=== PATIENT | female | born 1935 | race Caucasian/White ===

== ENCOUNTER 2017-04-28 11:22 | Inpatient (IN) | payer OTHER ==
[2017-04-28 11:49] LABS: BASOPHILS % (AUTO) 0.3 % (0.0-5.0); EOSINOPHILS % (AUTO) 0.9 % (0.0-8.0); HEMATOCRIT 31.3 % (36-48); LYMPHOCYTES % (AUTO) 13.5 % (21.0-51.0); MEAN CORPUSCULAR HEMOGLOBIN 31.6 pg (27.0-33.0); MEAN CORPUSCULAR VOLUME 90.2 fL (79-99); MONOCYTES % (AUTO) 6.8 % (3.0-13.0); NEUTROPHILS % (AUTO) 78.5 % (40.0-77.0); PLATELET COUNT (AUTO) 235 K/uL (130-400); RED BLOOD CELL COUNT(AUTO) 3.47 MIL/uL (4.00-5.50)
[2017-04-28 12:01] LABS: APPEARANCE,URINE CLOUDY (CLEAR); BILIRUBIN,URINE NEGATIVE (NEGATIVE); COLOR,URINE YELLOW (YELLOW); GLUCOSE, URINE (UA) NEGATIVE (NEGATIVE); KETONES,URINE 15 mg/dL (NEGATIVE); LEUKOCYTE ESTERASE ,URINE MODERATE (NEGATIVE); NITRATE,URINE POSITIVE (NEGATIVE); OCCULT BLOOD,URINE MODERATE (NEGATIVE); PH,URINE 5.5 (5.0-8.0); PROTEIN,URINE 30 (NEGATIVE); UROBILINOGEN,URINE 0.2 mg/dL (0.2-1.0)
[2017-04-28 12:01] LABS: POTASSIUM 3.6 mmol/L (3.5-5.1)
[2017-04-28 12:04] LABS: BACTERIA,URINE Few /HPF (None Seen); RBC,URINE 0-1 /HPF (0-1); SQUAMOUS EPITHELIAL CELL,UR Few /LPF (0-2); WBC,URINE 26-50 /HPF (0-1)
[2017-04-28] MEDS ORDERED: IPRATROPIUM/ALBUTEROL SULFATE 3 ML SOLUTION IH ONE (12:12)
[2017-04-28 12:16] LABS: BILIRUBIN,TOTAL 0.5 mg/dL (0.2-1.0); CREATINE KINASE MB 7.6 ng/mL (0.5-3.6); TOTAL PROTEIN, SERUM 6.8 g/dL (6.0-8.3)
[2017-04-28 12:17] LABS: ALBUMIN 3.1 g/dL (3.5-5.0)
[2017-04-28 12:21] LABS: B-TYPE NATRIURETIC PEPTIDE 72 pg/mL (0-100)
[2017-04-28] MEDS ORDERED: CEFTRIAXONE SODIUM 1 GM ONE (12:41)
[2017-04-28] MEDS ORDERED: ADENOSINE 3 MG/ML 2ML VIAL IV ONE ×3 (13:21→13:26)
[2017-04-28] MEDS: SODIUM CHLORIDE 0.9% 1000ML 1,000 ML IV SCH ×2 (14:23→20:50)
[2017-04-28] MEDS ORDERED: LACTULOSE 20 GM/30 ML UDCUP PO PRN (14:30)
[2017-04-28] MEDS: METRONIDAZOLE 250MG/50ML 50 ML IV SCH ×2 (14:30→22:12)
[2017-04-28] MEDS ORDERED: DOXYCYCLINE 100MG+NS 250ML 250 ML IV SCH (14:30)
[2017-04-28] MEDS ORDERED: MORPHINE SULFATE 2 MG/ML 1ML SYG IV PRN (14:30)
[2017-04-28] MEDS ORDERED: MAG HYDROX/AL HYDROX/SIMETH ES 30 ML SUSP UDCUP PO PRN (14:30)
[2017-04-28] MEDS ORDERED: ONDANSETRON HCL 4 MG/2 ML VIAL IV PRN (14:30)
[2017-04-28] MEDS ORDERED: POTASSIUM CHLORIDE 10% ELIXIR 20 MEQ/15 ML UDCUP PO PRN (14:30)
[2017-04-28] MEDS ORDERED: GUAIFENESIN-DM 200/20 MG 10 ML PO PRN (14:30)
[2017-04-28] MEDS ORDERED: NITROGLYCERIN 0.4 MG SL TAB SL PRN (14:30)
[2017-04-28] MEDS ORDERED: ACETAMINOPHEN 325 MG TAB PO PRN (14:30)
[2017-04-28] MEDS ORDERED: CEFTRIAXONE 1GM/D5W 50ML 50 ML IV SCH (14:30)
[2017-04-28] MEDS ORDERED: ACETAMINOPHEN-CODEINE 300/30MG TAB PO PRN (14:30)
[2017-04-28] MEDS ORDERED: POTASSIUM CHLORIDE 20 MEQ ERTAB PO PRN (14:30)
[2017-04-28] MEDS ORDERED: CEFTRIAXONE SODIUM 1 GM IVP SCH (14:45)
[2017-04-28] MEDS: CEFTRIAXONE SODIUM 1 GM IVP SCH (14:45)
[2017-04-28] MEDS ORDERED: METOPROLOL TARTRATE 1 MG/ML 5ML VIAL IV ONE (14:54)
[2017-04-28] MEDS ORDERED: METRONIDAZOLE 500MG/100ML BAG 100 ML ONE (17:09)
[2017-04-28] MEDS ORDERED: DOXYCYCLINE 100MG+NS 250ML 250 ML IV ONE (17:42)
[2017-04-28] MEDS ORDERED: SODIUM CHLORIDE 0.9% 1000ML 1,000 ML IV ONE (17:42)
[2017-04-28 18:24] LABS: CREATINE KINASE MB 6.7 ng/mL (0.5-3.6); TROPONIN I 0.09 ng/mL (0.00-0.06)
[2017-04-28] MEDS: METOPROLOL TARTRATE 25 MG TAB PO SCH (21:00)
[2017-04-28 21:01] VITALS: BP 170/73
[2017-04-28] MEDS ORDERED: METO50TA9 PO (21:54)
[2017-04-28] MEDS ORDERED: ASPI-1197 PO (21:54)
[2017-04-28] MEDS ORDERED: PARO-37 PO (21:54)
[2017-04-28] MEDS ORDERED: ALEN70TA2 PO (21:55)
[2017-04-28] MEDS ORDERED: NAPR-1023 PO (21:58)
[2017-04-28] MEDS: FAMOTIDINE/PF 20 MG/2 ML VIAL IV SCH (22:15)
[2017-04-29] VITALS (7 sets, daily range): BP systolic 152–184; BP diastolic 64–89
[2017-04-29 00:15] LABS: CREATINE KINASE MB 7.2 ng/mL (0.5-3.6); TROPONIN I 0.11 ng/mL (0.00-0.06)
[2017-04-29] MEDS ORDERED: LABETALOL 20 MG/4 ML DISP.SYRIN IV ONE (01:38)
[2017-04-29 04:27] LABS: HEMATOCRIT 31.8 % (36-48); MEAN CORPUSCULAR HEMOGLOBIN 30.7 pg (27.0-33.0); MEAN CORPUSCULAR HGB CONC 34.4 g/dL (32.0-36.0); MEAN CORPUSCULAR VOLUME 89.2 fL (79-99); PLATELET COUNT (AUTO) 264 K/uL (130-400); RED BLOOD CELL COUNT(AUTO) 3.56 MIL/uL (4.00-5.50); RED CELL DISTRIBUTION WIDTH 14.9 % (11.0-15.5); WHITE BLOOD COUNT (AUTO) 7.6 K/uL (4.8-10.8)
[2017-04-29 05:16] LABS: CREATININE 0.8 mg/dL (0.5-1.5); POTASSIUM 3.6 mmol/L (3.5-5.1)
[2017-04-29] MEDS: METRONIDAZOLE 250MG/50ML 50 ML IV SCH ×3 (06:30→22:37)
[2017-04-29] MEDS: METOPROLOL TARTRATE 25 MG TAB PO SCH ×3 (08:28→19:56)
[2017-04-29] MEDS: FAMOTIDINE/PF 20 MG/2 ML VIAL IV SCH ×2 (08:28→19:55)
[2017-04-29] MEDS: LABETALOL 20 MG/4 ML DISP.SYRIN IV PRN (08:29)
[2017-04-29] MEDS: ENOXAPARIN SODIUM 30 MG/0.3 ML SQ SCH (08:30)
[2017-04-29] MEDS ORDERED: COMPOUND IV MISC 1 EACH IVSOLN MISC PRN (08:45)
[2017-04-29] MEDS ORDERED: PHARMACY COMMUNICATION MISC SCH (10:15)
[2017-04-29] MEDS: IPRATROPIUM/ALBUTEROL SULFATE 3 ML SOLUTION IH PRN ×3 (11:10→23:52)
[2017-04-29] MEDS: HYDRALAZINE HCL 20 MG/ML VIAL IV PRN ×2 (13:10→23:43)
[2017-04-29] MEDS: PAROXETINE HCL 20 MG TABLET PO SCH (13:13)
[2017-04-29] MEDS: CEFTRIAXONE SODIUM 1 GM IVP SCH (14:27)
[2017-04-29] MEDS: ACETAMINOPHEN 325 MG TAB PO PRN (18:54)
[2017-04-29] MEDS: METHYLPREDNISOLONE SOD SUCC 40MG/ML 1ML IVP SCH (19:55)
[2017-04-30] VITALS (7 sets, daily range): BP systolic 134–189; BP diastolic 56–104
[2017-04-30 04:45] LABS: HEMATOCRIT 33.6 % (36-48); MEAN CORPUSCULAR HEMOGLOBIN 30.4 pg (27.0-33.0); MEAN CORPUSCULAR HGB CONC 34.1 g/dL (32.0-36.0); MEAN CORPUSCULAR VOLUME 89.2 fL (79-99); PLATELET COUNT (AUTO) 275 K/uL (130-400); RED BLOOD CELL COUNT(AUTO) 3.77 MIL/uL (4.00-5.50); WHITE BLOOD COUNT (AUTO) 7.4 K/uL (4.8-10.8)
[2017-04-30 04:59] LABS: B-TYPE NATRIURETIC PEPTIDE 910 pg/mL (0-100)
[2017-04-30] MEDS: METRONIDAZOLE 250MG/50ML 50 ML IV SCH ×3 (05:31→21:45)
[2017-04-30 05:32] LABS: CREATININE 0.8 mg/dL (0.5-1.5); POTASSIUM 3.8 mmol/L (3.5-5.1)
[2017-04-30] MEDS: IPRATROPIUM/ALBUTEROL SULFATE 3 ML SOLUTION IH PRN ×2 (05:41→11:06)
[2017-04-30] MEDS: PAROXETINE HCL 20 MG TABLET PO SCH ×2 (09:01→12:37)
[2017-04-30] MEDS: LABETALOL 20 MG/4 ML DISP.SYRIN IV PRN ×2 (09:01→23:54)
[2017-04-30] MEDS: METOPROLOL TARTRATE 25 MG TAB PO SCH ×2 (09:01→20:07)
[2017-04-30] MEDS: METHYLPREDNISOLONE SOD SUCC 40MG/ML 1ML IVP SCH (09:01)
[2017-04-30] MEDS: FAMOTIDINE/PF 20 MG/2 ML VIAL IV SCH ×2 (09:01→20:07)
[2017-04-30] MEDS: ASPIRIN 81MG TAB.CHEW PO SCH (09:01)
[2017-04-30] MEDS: ENOXAPARIN SODIUM 30 MG/0.3 ML SQ SCH (09:08)
[2017-04-30] MEDS ORDERED: IPRATROPIUM 0.5 MG/2.5 ML INH IH PRN (12:30)
[2017-04-30] MEDS: FUROSEMIDE 10 MG/ML 2ML VIAL IV SCH ×2 (12:38→21:39)
[2017-04-30] MEDS ORDERED: LORAZEPAM 2 MG/ML 1 ML VIAL IVP SCH (14:00)
[2017-04-30] MEDS: HYDRALAZINE HCL 20 MG/ML VIAL IV PRN (14:17)
[2017-04-30] MEDS: CEFTRIAXONE SODIUM 1 GM IVP SCH (14:18)
[2017-04-30] MEDS: METHYLPREDNISOLONE SOD SUCC 125MG/2ML VIAL IVP SCH (20:08)
[2017-05-01] VITALS (9 sets, daily range): BP systolic 148–190; BP diastolic 66–104
[2017-05-01] MEDS ORDERED: LORAZEPAM 2 MG/ML 1 ML VIAL ONE (02:09)
[2017-05-01] MEDS ORDERED: CLONIDINE HCL 0.1 MG TABLET ONE (02:09)
[2017-05-01] MEDS: CLONIDINE HCL 0.1 MG TABLET PO SCH ×2 (02:15→20:01)
[2017-05-01] MEDS ORDERED: LORAZEPAM 2 MG/ML 1 ML VIAL IVP ONE (02:15)
[2017-05-01 04:05] LABS: CREATININE 0.9 mg/dL (0.5-1.5); POTASSIUM 3.3 mmol/L (3.5-5.1)
[2017-05-01] MEDS: METRONIDAZOLE 250MG/50ML 50 ML IV SCH (05:29)
[2017-05-01] MEDS: POTASSIUM CHLORIDE 20MEQ/100ML 100 ML IV PRN (06:04)
[2017-05-01] MEDS: LIDOCAINE HCL-MPF 1% 2ML VIAL IVP PRN ×2 (06:04→08:07)
[2017-05-01] MEDS: METHYLPREDNISOLONE SOD SUCC 125MG/2ML VIAL IVP SCH ×2 (08:00→20:35)
[2017-05-01] MEDS: FAMOTIDINE/PF 20 MG/2 ML VIAL IV SCH ×2 (08:00→20:31)
[2017-05-01] MEDS: ENOXAPARIN SODIUM 30 MG/0.3 ML SQ SCH (08:10)
[2017-05-01] MEDS: ASPIRIN 81MG TAB.CHEW PO SCH ×2 (09:00→13:31)
[2017-05-01] MEDS: PAROXETINE HCL 20 MG TABLET PO SCH ×3 (09:00→13:29)
[2017-05-01] MEDS: METOPROLOL TARTRATE 25 MG TAB PO SCH ×3 (09:00→20:31)
[2017-05-01] MEDS: FUROSEMIDE 10 MG/ML 2ML VIAL IV SCH ×2 (10:23→22:05)
[2017-05-01] MEDS: CEFTRIAXONE SODIUM 1 GM IVP SCH (13:55)
[2017-05-01] MEDS ORDERED: HALOPERIDOL LACTATE 5 MG/ML VIAL ONE (21:06)
[2017-05-01] MEDS: HALOPERIDOL LACTATE 5 MG/ML VIAL IV SCH (22:04)
[2017-05-02] VITALS (10 sets, daily range): BP systolic 138–201; BP diastolic 65–100
[2017-05-02] MEDS: LABETALOL 20 MG/4 ML DISP.SYRIN IV PRN ×3 (00:52→16:11)
[2017-05-02 07:08] LABS: POTASSIUM 3.4 mmol/L (3.5-5.1)
[2017-05-02] MEDS: FAMOTIDINE/PF 20 MG/2 ML VIAL IV SCH ×2 (09:29→21:29)
[2017-05-02] MEDS: METOPROLOL TARTRATE 25 MG TAB PO SCH ×2 (09:29→21:30)
[2017-05-02] MEDS: METHYLPREDNISOLONE SOD SUCC 125MG/2ML VIAL IVP SCH (09:29)
[2017-05-02] MEDS: ASPIRIN 81MG TAB.CHEW PO SCH (09:30)
[2017-05-02] MEDS: PAROXETINE HCL 20 MG TABLET PO SCH ×2 (09:30→12:49)
[2017-05-02] MEDS: CEFTRIAXONE SODIUM 1 GM IVP SCH (09:32)
[2017-05-02] MEDS: ENOXAPARIN SODIUM 30 MG/0.3 ML SQ SCH (09:32)
[2017-05-02] MEDS: FUROSEMIDE 10 MG/ML 2ML VIAL IV SCH ×3 (10:03→16:11)
[2017-05-02] MEDS: POTASSIUM CHLORIDE 20MEQ/100ML 100 ML IV PRN (15:44)
[2017-05-02] MEDS: LIDOCAINE HCL-MPF 1% 2ML VIAL IVP PRN (15:44)
[2017-05-02] MEDS: HALOPERIDOL LACTATE 5 MG/ML VIAL IV SCH (21:15)
[2017-05-02] MEDS: METHYLPREDNISOLONE SOD SUCC 40MG/ML 1ML IVP SCH (21:29)
[2017-05-03] MEDS: CLONIDINE HCL 0.1 MG TABLET PO SCH (02:15)
[2017-05-03 03:41] VITALS: BP 130/75
[2017-05-03 04:10] LABS: POTASSIUM 3.7 mmol/L (3.5-5.1)
[2017-05-03] MEDS: FUROSEMIDE 10 MG/ML 2ML VIAL IV SCH ×2 (05:59→16:34)
[2017-05-03 07:28] VITALS: BP 180/78
[2017-05-03] MEDS: ASPIRIN 81MG TAB.CHEW PO SCH (09:20)
[2017-05-03] MEDS: PAROXETINE HCL 20 MG TABLET PO SCH ×2 (09:20→13:37)
[2017-05-03] MEDS: METHYLPREDNISOLONE SOD SUCC 40MG/ML 1ML IVP SCH ×2 (09:20→21:00)
[2017-05-03] MEDS: FAMOTIDINE/PF 20 MG/2 ML VIAL IV SCH ×2 (09:20→21:00)
[2017-05-03] MEDS: METOPROLOL TARTRATE 25 MG TAB PO SCH ×2 (09:21→21:00)
[2017-05-03] MEDS: ENOXAPARIN SODIUM 30 MG/0.3 ML SQ SCH (09:21)
[2017-05-03] MEDS: CEFTRIAXONE SODIUM 1 GM IVP SCH (09:39)
[2017-05-03 11:41] VITALS: BP 161/79
[2017-05-03] MEDS: LIDOCAINE HCL-MPF 1% 2ML VIAL IVP PRN (13:37)
[2017-05-03] MEDS: POTASSIUM CHLORIDE 20MEQ/100ML 100 ML IV PRN (13:37)
[2017-05-03 16:23] VITALS: BP 159/89
[2017-05-03 19:29] VITALS: BP 156/76
[2017-05-03] MEDS: HALOPERIDOL LACTATE 5 MG/ML VIAL IV SCH (21:15)
[2017-05-03 23:31] VITALS: BP 179/74
[2017-05-04] MEDS: CLONIDINE HCL 0.1 MG TABLET PO SCH (02:15)
[2017-05-04 04:02] VITALS: BP 192/108
[2017-05-04] MEDS: LABETALOL 20 MG/4 ML DISP.SYRIN IV PRN (04:22)
[2017-05-04] MEDS: FUROSEMIDE 10 MG/ML 2ML VIAL IV SCH ×2 (05:10→17:11)
[2017-05-04 05:12] VITALS: BP 152/76
[2017-05-04 07:20] VITALS: BP 139/80
[2017-05-04] MEDS: FAMOTIDINE/PF 20 MG/2 ML VIAL IV SCH ×2 (10:00→21:43)
[2017-05-04] MEDS: CEFTRIAXONE SODIUM 1 GM IVP SCH (10:00)
[2017-05-04] MEDS: PAROXETINE HCL 20 MG TABLET PO SCH ×2 (10:00→12:32)
[2017-05-04] MEDS: METHYLPREDNISOLONE SOD SUCC 40MG/ML 1ML IVP SCH ×2 (10:00→21:43)
[2017-05-04] MEDS: METOPROLOL TARTRATE 25 MG TAB PO SCH ×2 (10:01→21:45)
[2017-05-04] MEDS: ASPIRIN 81MG TAB.CHEW PO SCH (10:01)
[2017-05-04] MEDS: ENOXAPARIN SODIUM 30 MG/0.3 ML SQ SCH (10:01)
[2017-05-04 11:26] VITALS: BP 137/73
[2017-05-04] MEDS: ACETAMINOPHEN 325 MG TAB PO PRN (14:01)
[2017-05-04 16:14] VITALS: BP 165/90
[2017-05-04 19:33] VITALS: BP 146/76
[2017-05-04] MEDS: HALOPERIDOL LACTATE 5 MG/ML VIAL IV SCH (21:15)
[2017-05-05 00:05] VITALS: BP 165/97
[2017-05-05] MEDS: CLONIDINE HCL 0.1 MG TABLET PO SCH (02:04)
[2017-05-05 03:43] VITALS: BP 168/76
[2017-05-05] MEDS: FUROSEMIDE 10 MG/ML 2ML VIAL IV SCH (05:11)
[2017-05-05 07:32] VITALS: BP 146/72
[2017-05-05] MEDS: ENOXAPARIN SODIUM 30 MG/0.3 ML SQ SCH (08:02)
[2017-05-05] MEDS: METOPROLOL TARTRATE 25 MG TAB PO SCH (08:03)
[2017-05-05] MEDS: FAMOTIDINE/PF 20 MG/2 ML VIAL IV SCH (08:03)
[2017-05-05] MEDS: ASPIRIN 81MG TAB.CHEW PO SCH (08:03)
[2017-05-05] MEDS: METHYLPREDNISOLONE SOD SUCC 40MG/ML 1ML IVP SCH (08:03)
[2017-05-05] MEDS: PAROXETINE HCL 20 MG TABLET PO SCH ×2 (08:15→11:38)
[2017-05-05] MEDS ORDERED: CEFD300C3 PO (09:58)
[2017-05-05] MEDS ORDERED: FURO20TA6 PO (09:59)
[2017-05-05] MEDS: CEFTRIAXONE SODIUM 1 GM IVP SCH (10:24)
[2017-05-05 11:10] VITALS: BP 102/67
[2017-05-05] MEDS ORDERED: ACETAMINOPHEN 325 MG TAB PO ONE (12:02)
[2017-05-05] MEDS: ACETAMINOPHEN 325 MG TAB PO PRN (12:06)
[2017-05-05] MEDS ORDERED: HONEY 1 APPL/ML TUBE TP SCH (15:15)
[2017-05-06] MEDS ORDERED: ALENDRONATE SODIUM 35 MG TAB PO SCH (06:30)
== END 2017-05-05 16:20 | disposition home or self-care (01) | DRG 391 ==
LOC: EDH 11:22 → EDHIP 13:20 → OBSVTOIN 13:20 → 2DH 20:17
PROVIDERS: ADMIT Internal Medicine; ATTEND Internal Medicine
DX: K52.9 Noninfective gastroenteritis and colitis, unspecified (principal); I50.33 Acute on chronic diastolic (congestive) heart failure; E44.0 Moderate protein-calorie malnutrition; J44.1 Chronic obstructive pulmonary disease with (acute) exacerbation; M62.82 Rhabdomyolysis; F03.90 Unspecified dementia, unspecified severity, without behavioral disturbance, psychotic disturbance, mood disturbance, and anxiety; I48.91 Unspecified atrial fibrillation; E46 Unspecified protein-calorie malnutrition; M81.0 Age-related osteoporosis without current pathological fracture; N39.0 Urinary tract infection, site not specified; I11.0 Hypertensive heart disease with heart failure; B96.20 Unspecified Escherichia coli [E. coli] as the cause of diseases classified elsewhere; Z90.710 Acquired absence of both cervix and uterus; Z96.649 Presence of unspecified artificial hip joint
CPT/HCPCS: 36415; 71045; 71250; 80048; 80053; 81001; 82550; 82553; 83605; 83874; 83880; 84484; 85025; 85027; 87040; 87088; 87186; 93005; 93306; 94640; 94664; 97039; 99291; A4218; J0153; J0360; J0696; J1630; J1650; J1940; J2060; J2920; J2930; J3480; J3490; J7030